=== PATIENT | male | born 2000 | race Caucasian/White ===

== ENCOUNTER 2023-10-20 10:56 | Emergency (ER) | payer MEDICAID ==
[~2023-10-20] VITALS: Ht 193 cm; Wt 125.2 kg
[2023-10-20 12:04] VITALS: BP 138/66; TEMP 98
[2023-10-20] MEDS: IBUPROFEN 600 MG TAB PO ONE (12:18)
[2023-10-20 13:06] VITALS: PULSE 70; RESP 16; O2SAT 97
[2023-10-20] MEDS ORDERED: IBUP1TAB5 PO (14:02)
== END 2023-10-20 14:14 | disposition home or self-care (01) ==
LOC: ER 10:56
DX: S63.501A Unspecified sprain of right wrist, initial encounter (principal); V00.131A Fall from skateboard, initial encounter; Y93.51 Activity, roller skating (inline) and skateboarding; Y92.89 Other specified places as the place of occurrence of the external cause; Y99.8 Other external cause status
CPT/HCPCS: 29125; 73110